=== PATIENT | male | born 1970 | race Caucasian/White ===

== ENCOUNTER 2018-01-14 11:43 | Emergency (ER) | payer MEDICAID ==
[2018-01-14 12:50] LABS: ABSOLUTE BASOPHILS # (AUTO) 0.1 10^3/uL (0.0-0.2); ABSOLUTE EOSINOPHILS # (AUTO) 0.4 10^3/uL (0.0-0.6); ABSOLUTE LYMPHOCYTES (AUTO) 1.9 10^3/uL (0.5-4.7); ABSOLUTE MONOCYTES (AUTO) 0.5 10^3/uL (0.1-1.4); ABSOLUTE NEUT (AUTO) 3.8 10^3/uL (1.7-8.2); BASOPHILS % (AUTO) 1.6 % (0-2); EOSINOPHILS % (AUTO) 5.7 % (0-6); HEMOGLOBIN 15.6 g/dL (13.5-17.0); LYMPHOCYTES % (AUTO) 27.9 % (13-45); MEAN CORPUSCULAR HEMOGLOBIN 29.8 pg (27.0-33.4); MEAN CORPUSCULAR HGB CONC 34.6 g/dL (32.0-36.0); MEAN CORPUSCULAR VOLUME 86 fl (80-97); MONOCYTES % (AUTO) 7.5 % (3-13); PLATELET COUNT 280 10^3/uL (150-450); RED BLOOD COUNT 5.23 10^6/uL (4.35-5.55); RED CELL DISTRIBUTION WIDTH 12.9 % (11.5-14.0); SEGMENTED NEUTROPHILS % (AUTO) 57.3 % (42-78); TOTAL CELLS COUNTED % (AUTO) 100 %; WHITE BLOOD COUNT 6.7 10^3/uL (4.0-10.5)
--- NOTE | 2018-01-14 12:53 | ER Document Report ---
ED General - General Chief Complaint: Headache Stated Complaint: DIZZY Time Seen by Provider: 01/14/18 12:42 TRAVEL OUTSIDE OF THE [place] IN LAST 30 DAYS: No - HPI Patient complains to provider of: Dizzy throbbing had Notes: Patient has been suffering with several months of the sensation of a throbbing headache. Patient has been noncompliant with his blood pressure medications for 6-8 months. Patient denies chest pain, dyspnea, shortness of breath, nausea, vomiting. No recent sick contacts trauma or travel. - Related Data Allergies/Adverse Reactions: No Known Allergies Allergy (Verified 01/14/18 12:10) Past Medical History - Social History Smoking Status: Current Every Day Smoker Chew tobacco use (# tins/day): No Frequency of alcohol use: Occasional Drug Abuse: None Family History: None Patient has suicidal ideation: No Patient has homicidal ideation: No Renal/ Medical History: Denies: Hx Peritoneal Dialysis Review of Systems - Review of Systems Constitutional: No symptoms reported EENT: No symptoms reported Cardiovascular: No symptoms reported Respiratory: No symptoms reported Gastrointestinal: No symptoms reported Genitourinary: No symptoms reported Male Genitourinary: No symptoms reported Musculoskeletal: No symptoms reported Skin: No symptoms reported Hematologic/Lymphatic: No symptoms reported Neurological/Psychological: Headaches Physical Exam - Vital signs Vitals: Temp Pulse Resp BP Pulse Ox 98.5 F 73 16 144/104 H 96 01/14/18 11:58 01/14/18 11:58 01/14/18 11:58 01/14/18 11:58 01/14/18 11:58 - Notes Notes: PHYSICAL EXAMINATION: GENERAL: Well-appearing, well-nourished and in no acute distress. HEAD: Atraumatic, normocephalic. EYES: Pupils equal round and reactive to light, extraocular movements intact, sclera anicteric, conjunctiva are normal. ENT: nares patent, oropharynx clear without exudates. Moist mucous membranes. NECK: Normal range of motion, supple without lymphadenopathy LUNGS: Breath sounds clear to auscultation bilaterally and equal. No wheezes rales or rhonchi. HEART: Regular rate and rhythm without murmurs ABDOMEN: Soft, nontender, normoactive bowel sounds. No guarding, no rebound. No masses appreciated. EXTREMITIES: Normal range of motion, no pitting or edema. No cyanosis. NEUROLOGICAL: Cranial nerves grossly intact. Normal speech, normal gait. Normal sensory and motor exams. PSYCH: Normal mood, normal affect. SKIN: Warm, Dry, normal turgor, no rashes or lesions noted. Course - Vital Signs Vital signs: Temp Pulse Resp BP Pulse Ox 98.3 F 73 14 144/104 H 97 01/14/18 13:09 01/14/18 11:58 01/14/18 13:09 01/14/18 11:58 01/14/18 13:09 - Laboratory Result Diagrams: 01/14/18 12:35 01/14/18 12:35 - EKG Interpretation by Me Additional EKG results interpreted by me: 01/14/18 13:28 Normal sinus rhythm, normal intervals, no ST elevations or depressions, no pathologic T-wave inversions. Discharge - Discharge Clinical Impression: Dizziness Condition: Good Disposition: HOME, SELF-CARE Instructions: Chest Wall Pain ([facility]), Headache ([facility]) Additional Instructions: Contact [facility] Prescriptions: Enalapril Maleate [Vasotec 10 mg Tablet] 10 mg PO DAILY #30 tablet Lorazepam [Ativan 1 mg Tablet] 1 mg PO Q4 PRN #30 tab PRN Reason:
[2018-01-14 12:59] LABS: APPEARANCE,URINE CLEAR; BILIRUBIN,URINE NEGATIVE (NEGATIVE); COLOR,URINE YELLOW; GLUCOSE, URINE NEGATIVE (NEGATIVE); KETONES,URINE NEGATIVE (NEGATIVE); LEUKOCYTE ESTERASE,URINE NEGATIVE (NEGATIVE); NITRITE,URINE NEGATIVE (NEGATIVE); PROTEIN,URINE NEGATIVE (NEGATIVE); URINE SPECIFIC GRAVITY 1.015; UROBILINOGEN,URINE NEGATIVE mg/dL (<2.0)
[2018-01-14 13:15] LABS: ALANINE AMINOTRANSFERASE 59 U/L (21-72); ALBUMIN 4.9 g/dL (3.5-5.0); ALKALINE PHOSPHATASE 69 U/L (38-126); ANION GAP 12 (5-19); ASPARTATE AMINO TRANSFERASE 31 U/L (17-59); BILIRUBIN,DIRECT 0.2 mg/dL (0.0-0.4); BILIRUBIN,TOTAL 0.5 mg/dL (0.2-1.3); BLOOD UREA NITROGEN 13 mg/dL (7-20); CALCIUM 9.8 mg/dL (8.4-10.2); CARBON DIOXIDE 27 mmol/L (22-30); CHLORIDE 102 mmol/L (98-107); GLUCOSE 93 mg/dL (75-110); POTASSIUM 4.5 mmol/L (3.6-5.0); SODIUM 140.5 mmol/L (137-145); TOTAL PROTEIN 7.4 g/dL (6.3-8.2)
[2018-01-14 14:21] VITALS: BP 143/102
--- NOTE | 2018-01-14 21:58 | EKG REPORT ---
SEVERITY:- ABNORMAL ECG - SINUS RHYTHM LEFT ANTERIOR FASCICULAR BLOCK BORDERLINE R WAVE PROGRESSION, ANTERIOR LEADS BORDERLINE T WAVE ABNORMALITIES PROLONGED QT INTERVAL : Confirmed by: Bianca Desai 14-Jan-2018 21:58:00
== END 2018-01-14 14:35 | disposition home or self-care (01) ==
LOC: ER 11:43
DX: R42 Dizziness and giddiness (principal); R51 Headache; F17.200 Nicotine dependence, unspecified, uncomplicated; Z91.14 Patient's other noncompliance with medication regimen
CPT/HCPCS: 36415; 80053; 81001; 84484; 85025; 93005; 93010; 99284

== ENCOUNTER 2018-07-06 11:53 | Emergency (ER) | payer MEDICAID ==
[2018-07-06 12:02] VITALS: BP 146/107
[2018-07-06] MEDS ORDERED: IPRATROPIUM/ALBUTEROL 0.5-2.5 MG/3 ML AMPUL NEB ONE (12:30)
[2018-07-06] MEDS ORDERED: ENALAPRIL MALEATE 10 MG TABLET PO ONE (12:31)
[2018-07-06] MEDS ORDERED: PREDNISONE 20 MG TABLET PO ONE (12:31)
--- NOTE | 2018-07-06 13:11 | ER Document Report ---
ED Medical Screen (RME) - General Chief Complaint: Asthma Exacerbation Stated Complaint: DIFFICULTY BREATHING Time Seen by Provider: 07/06/18 12:30 Mode of Arrival: Ambulatory Information source: Patient TRAVEL OUTSIDE OF THE [place] IN LAST 30 DAYS: No - HPI Patient complains to provider of: Wheezing Onset: Other - 40-year-old male with a past medical history of asthma and wheezing presents for evaluation of worsening shortness of breath in the setting of having run out of his medications over the last several month's, he notes that he is a known asthmatic and is used Pulmicort as well as albuterol in the past to control his symptoms. Since moving to the area he has run out of his medications and yesterday he ran out of his rescue inhaler. He is also run out of his blood pressure medication. He is called his doctor multiple times during scheduled appointment over the last month has been unable to obtain one. He endorses shortness of breath which is stereotypical of an asthma exacerbation to him, he has had multiple asthma exacerbations in the past which generally respond well to steroids as well as albuterol. He denies any fevers chills cough chest pain lightheadedness abdominal pain diarrhea constipation or dysuria he has not had any other rashes or ill contacts recently. - Related Data Allergies/Adverse Reactions: No Known Allergies Allergy (Verified 07/06/18 11:57) Past Medical History - General Information source: Patient - Social History Cigarette use (# per day): No Chew tobacco use (# tins/day): No - Past Medical History Cardiac Medical History: Reports: Hx Hypertension Renal/ Medical History: Denies: Hx Peritoneal Dialysis Past Surgical History: Reports: Hx Abdominal Surgery - sigmoid Review of Systems - Review of Systems -: Yes All other systems reviewed and negative Physical Exam - Vital signs Vitals: Temp Pulse Resp BP Pulse Ox 98.8 F 88 18 146/107 H 95 07/06/18 12:01 07/06/18 12:01 07/06/18 12:01 07/06/18 12:01 07/06/18 12:01 - General General appearance: Appears well In distress: None - HEENT Head: Normocephalic Eyes: Normal Conjunctiva: Normal Cornea: Normal Ears: Normal - Respiratory Respiratory status: No respiratory distress Chest status: Nontender Breath sounds: Wheezing Chest palpation: Normal - Cardiovascular Rhythm: Other Heart sounds: Normal auscultation Murmur: No - Abdominal Inspection: Normal Tenderness: Nontender - Back Back: Normal - Extremities General upper extremity: Normal inspection General lower extremity: Normal inspection - Neurological Neuro grossly intact: Yes Cognition: Normal Orientation: AAOx4 Taya Coma Scale Eye Opening: Spontaneous Taya Coma Scale Verbal: Oriented Taya Coma Scale Motor: Obeys Commands [place] Coma Scale Total: 15 - Psychological Associated symptoms: Normal affect Course - Re-evaluation Re-evalutation: 07/06/18 15:03 This 40-year-old man presents for evaluation of an asthma exacerbation stereotypical of previous asthma exacerbations which she has had in the past which generally respond well to steroids as well as albuterol. Is run out of his medications at home as a result is concerned that he is being untreated at this time. On initial evaluation however the patient is able to speak in nearly full sentences and has scattered wheezes which are faint at best. He has no risk factors for thromboembolic disease at this time, he is otherwise well-appearing. States that he does not have any actual chest pain at this time this feel stereotypical for an asthma exacerbation. Given his relatively low risk overall do not believe there is likely a cardiac etiology for this patient defers further imaging or testing at this time for cardiac origin. We will administer nebulization and steroids will reassess. Following administration of nebulizer as well as steroids patient's wheezes are essentially resolved, he is well-appearing at this time ambulatory without other symptoms. We will plan for treatment his albuterol as well as budesonide and will give a prescription for steroids as well as enalapril to take at home. Patient to follow-up with his primary physician in the coming month for further evaluation of his ongoing symptoms. - Vital Signs Vital signs: Temp Pulse Resp BP Pulse Ox 98.8 F 88 18 146/107 H 95 07/06/18 12:01 07/06/18 12:01 07/06/18 12:09 07/06/18 12:01 07/06/18 12:01 Doctor's Discharge - Discharge Clinical Impression: Medication administered Asthma Qualifiers: Asthma severity: mild Asthma persistence: intermittent Asthma complication type : unspecified Qualified Code(s): J45.20 - Mild intermittent asthma, uncomplicated Hypertension Qualifiers: Hypertension type: unspecified Qualified Code(s): I10 - Essential (primary) hypertension Condition: Good Disposition: HOME, SELF-CARE Instructions: Asthma ([facility]), Inhaled Bronchodilators ([facility]) Additional Instructions: You were seen today in the emergency department for your asthma as well as her hypertension which is been untreated. You had an evaluation including a physical exam as well as administration of medications and reassessment. It is important that you follow-up with a doctor regarding your ongoing asthma. Use the steroids prescribed to you as directed on the package. Make sure that you have your kidney function checked in the next month after starting your blood pressure medications. Return for worsening chest pain shortness of breath inability to breathe lightheadedness or other symptoms. Prescriptions: Albuterol Sulfate [Proair HFA Inhalation Aerosol 8.5 gm MDI] 2 puff IH Q4H PRN # 1 mdi PRN Reason: Budesonide [Pulmicort 180 mcg Flexhaler] 180 mcg IH DAILY #1 aer.[id number] Enalapril Maleate [Vasotec 10 mg Tablet] 10 mg PO DAILY #30 tablet Methylprednisolone [Medrol Dosepack (4 mg/Tab) 21 Tab/Dosepak] 21 tab PO DAILY # 1 dspk Forms: Elevated Blood Pressure
== END 2018-07-06 13:30 | disposition home or self-care (01) ==
LOC: ER 11:53
DX: J45.20 Mild intermittent asthma, uncomplicated (principal); I10 Essential (primary) hypertension
CPT/HCPCS: 94640; 99284; J3490; J7512; J7620

== ENCOUNTER 2020-02-20 19:56 | Emergency (ER) | payer MEDICAID ==
[2020-02-20] MEDS ORDERED: OXYCODONE-ACETAMINOPHEN 5-325 MG TABLET PO ONE (20:29)
--- NOTE | 2020-02-20 20:31 | ER Document Report ---
ED Medical Screen (RME) - General Chief Complaint: Shortness Of Breath Stated Complaint: RIB AND BACK PAIN/TROUBLE BREATHING Time Seen by Provider: 02/20/20 20:24 Mode of Arrival: Wheelchair Information source: Patient Notes: 49-year-old male patient presented to the emergency department chief complaint of left anterior lateral rib pain. Patient reports about a week ago he feels like he pulled a muscle in this area, tonight he sneezed very hard and heard a pop. He is reporting significant pain with inspiration since this time. Lung sounds clear and equal bilaterally. I have greeted and performed a rapid initial assessment of this patient. A comprehensive ED assessment and evaluation of the patient, analysis of test results and completion of the medical decision making process will be conducted by additional ED providers. I have specifically instructed the patient or family members with the patient to immediately return to any nursing staff should anything change in the patient's condition or with their chief complaint. TRAVEL OUTSIDE OF THE [place] IN LAST 30 DAYS: No - Related Data Allergies/Adverse Reactions: banana Allergy (Verified 02/20/20 20:23) cantaloupe Allergy (Verified 02/20/20 20:23) strawberry Allergy (Verified 02/20/20 20:23) Past Medical History - Past Medical History Cardiac Medical History: Reports: Hx Hypertension Renal/ Medical History: Denies: Hx Peritoneal Dialysis Past Surgical History: Reports: Hx Abdominal Surgery - sigmoid Physical Exam - Vital signs Vitals: Temp Pulse Resp BP Pulse Ox 97.8 F 88 16 140/98 H 98 02/20/20 20:11 02/20/20 20:11 02/20/20 20:11 02/20/20 20:11 02/20/20 20:11 Course - Vital Signs Vital signs: Temp Pulse Resp BP Pulse Ox 97.8 F 88 16 140/98 H 98 02/20/20 20:11 02/20/20 20:11 02/20/20 20:11 02/20/20 20:11 02/20/20 20:11
--- NOTE | 2020-02-20 21:04 | RADIOLOGY REPORT (SQ) ---
CLINICAL INDICATION: left anterior/lateral rib pain. . TECHNIQUE: 4 view(s) obtained of the left ribs. Single view chest. COMPARISON: None. FINDINGS: No acute displaced rib fracture is identified. Alignment appears anatomic. Surrounding soft tissues are unremarkable. The cardiomediastinal silhouette is prominent. The lungs are grossly clear. No evidence of effusion or pneumothorax. IMPRESSION: No acute displaced rib fracture is identified.
[2020-02-20] MEDS ORDERED: KETOROLAC TROMETHAMINE 60 MG/2 ML SDV IM ONE (21:31)
--- NOTE | 2020-02-20 21:31 | ER Document Report ---
ED General - General Chief Complaint: Rib Pain Stated Complaint: RIB AND BACK PAIN/TROUBLE BREATHING Time Seen by Provider: 02/20/20 20:24 Mode of Arrival: Wheelchair Notes: 49-year-old man presents to the emergency department history of pulled muscle in his left chest earlier this week while working in his yard. Tonight he sneezed and had a sudden pop and severe pain in his left chest. He states that at first it was difficult getting his breath and the pain was severe, he was brought to the emergency department by his son. Presently he is more comfortable and breathing more easily, however, he is concerned that he may have broken a rib or possible lung collapse. TRAVEL OUTSIDE OF THE [place] IN LAST 30 DAYS: No - Related Data Allergies/Adverse Reactions: banana Allergy (Verified 02/20/20 20:23) cantaloupe Allergy (Verified 02/20/20 20:23) strawberry Allergy (Verified 02/20/20 20:23) Past Medical History - General Information source: Patient - Social History Smoking Status: Former Smoker Frequency of alcohol use: Occasional Drug Abuse: None Family History: None Patient has suicidal ideation: No Patient has homicidal ideation: No - Past Medical History Cardiac Medical History: Reports: Hx Hypertension Pulmonary Medical History: Reports: Hx Asthma Renal/ Medical History: Denies: Hx Peritoneal Dialysis Past Surgical History: Reports: Hx Abdominal Surgery - sigmoid Review of Systems - Review of Systems Notes: Constitutional: Negative for fever. HENT: Negative for sore throat. Eyes: Negative for visual changes. Cardiovascular: Negative for chest pain. Respiratory: + Shortness of breath. Gastrointestinal: Negative for abdominal pain, vomiting or diarrhea. Genitourinary: Negative for dysuria. Musculoskeletal: + Left chest pain Skin: Negative for rash. Neurological: Negative for headaches, weakness or numbness. 10 point ROS negative except as marked above and in HPI. Physical Exam - Vital signs Vitals: Temp Pulse Resp BP Pulse Ox 97.8 F 88 16 140/98 H 98 02/20/20 20:11 02/20/20 20:11 02/20/20 20:11 02/20/20 20:11 02/20/20 20:11 - Notes Notes: PHYSICAL EXAMINATION: Physical Exam: General: Well-nourished well-developed 49-year-old man mild distress secondary to chest pain HEENT: NC/AT, pupils equal round and reactive to light, MM moist,nares clear, oropharynx clear, airway patent Neck: supple, no adenopathy, no masses. Good range of motion Lungs: clear, no wheezing, no rales no rhonchi CVS: Regular rate and rhythm no murmur gallop or rub Abdomen: Soft, active, nontender, no masses, no hepatosplenomegaly MSK: Tenderness to palpation left lateral and anterior rib cage. Ext: No edema, clubbing or cyanosis. Neuro: Alert and responsive, moving all 4 extremities on command, cranial nerves intact, no focal findings Skin: Intact no open lesions, no rash PSYCH: Normal mood, normal affect. Course - Vital Signs Vital signs: Temp Pulse Resp BP Pulse Ox 97.8 F 88 16 140/98 H 98 02/20/20 20:11 02/20/20 20:11 02/20/20 20:11 02/20/20 20:11 02/20/20 20:11 - Diagnostic Test Radiology reviewed: Image reviewed, Reports reviewed - Chest x-ray: No acute cardiopulmonary disease Rib series: No displaced rib fractures seen. Discharge - Discharge Clinical Impression: Left-sided chest wall pain Condition: Good Disposition: HOME, SELF-CARE Instructions: Anti-Inflammatory Medication ([facility]), Oral Narcotic Medication ([facility]) Additional Instructions: You were seen in the emergency department tonight with left-sided chest wall pain. No rib fracture was diagnosed, managing the pain would be the focus of treatment if you cracked a rib. Please use the medications as prescribed, you may also use ibuprofen, apply cold pack to the area of discomfort and follow-up with your doctor as needed. If your symptoms are worsening or if you have other concerns you may return to the emergency department. HOME CARE INSTRUCTIONS & INFORMATION: Thank you for choosing us for your medical needs. We hope you're satisfied with the care you received. After you leave, you must properly care for your problem and, at the same time, observe its progress. Any condition can change. Some illnesses can change rapidly over hours or days. If your condition worsens, return to the Emergency Department or see your physician promptly. ABOUT YOUR X-RAYS AND EKG'S: If you had an EKG or X-rays taken, they have been read by the Emergency Physician. The X-rays and EKG's will also be read by a Radiologist or Senior Telecommunications Technician within 24 hours. If discrepancies are noted, you will be notified by telephone. Please be certain the ED has a correct telephone number & address where you can be reached. Also, realize that some fractures or abnormalities do not show up on initial X-rays. If your symptoms continue, see your physician. ABOUT YOUR LABORATORY TEST: If you had laboratory tests, the results have been reviewed by the Emergency Physician. Some test results (for example cultures) may not be available for several days. You will be contacted if any test result shows you need additional treatment. Please be certain the ED has a correct telephone number and address where you can be reached. ABOUT YOUR MEDICATIONS: You will receive instructions on how to take your medicine on the prescription label you receive. Additional information may be provided by the Pharmacy. If you have questions afterwards, call the ED for clarification or further instructions. Some prescribed medications may cause drowsiness. Do not perform tasks such as driving a car or operating machinery without consulting your Pharmacist. If you feel you need a refill of pain medication, your condition will need re-evaluation. Please do not call for a refill of any medication. ABOUT YOUR SIGNATURE: Signature of this document acknowledges to followin. Understanding that you received emergency treatment and that you may be released before al medical problems are known or treated. Please be certain the ED has a correct phone number & address where you can be reached. 2. Acknowledgement that you will arrange for follow-up care as recommended. 3. Authorization for the Emergency Physician to provide information to your follow-up Physician in order to maximize your care. AT ANY TIME, IF YOUR SYMPTOMS CHANGE SIGNIFICANTLY OR WORSEN OR YOU DEVELOP NEW SYMPTOMS, RETURN TO THE EMERGENCY DEPARTMENT IMMEDIATELY FOR RE-EVALUATION. OUR GOAL IS TO PROVIDE EXCELLENT MEDICAL CARE! WE HOPE THAT WE HAVE MET YOUR EXPECTATIONS DURING YOUR EMERGENCY DEPARTMENT VISIT AND THAT YOU FEEL YOU HAVE RECEIVED EXCELLENT CARE!
[2020-02-20] MEDS ORDERED: HYDROCODONE/ACETAMINOPHEN 5-325 MG (6 TAB/ER DISP) PO PRN (21:35)
[2020-02-20 22:44] VITALS: BP 125/86
--- NOTE | 2020-02-21 10:08 | EKG REPORT ---
SEVERITY:- ABNORMAL ECG - SINUS RHYTHM LEFT ANTERIOR FASCICULAR BLOCK CONSIDER ANTERIOR INFARCT BORDERLINE T WAVE ABNORMALITIES : Confirmed by: Doris Tolbert MD 21-Feb-2020 10:07:43
== END 2020-02-20 22:42 | disposition home or self-care (01) ==
LOC: ER 19:56
DX: R07.89 Other chest pain (principal); R06.02 Shortness of breath; M54.9 Dorsalgia, unspecified; R06.00 Dyspnea, unspecified; I10 Essential (primary) hypertension
CPT/HCPCS: 93005; 99284; 96372; 71101; 93010; J1885